=== PATIENT | female | born 1975 | race Two or more races ===

== ENCOUNTER 2020-11-13 13:28 | Emergency (ER) | payer MEDICAID, OTHER ==
[~2020-11-13] VITALS: Ht 172.7 cm; Wt 54.4 kg
[2020-11-13 13:45] VITALS: BP 140/80
[2020-11-13] MEDS ORDERED: SODIUM CHLORIDE 0.9% 1,000 ML IV ONE (13:45)
== END 2020-11-13 15:30 | disposition left against medical advice (07) ==
LOC: EDBD 13:28 → ER 13:28
DX: T67.5XXA Heat exhaustion, unspecified, initial encounter (principal); F17.210 Nicotine dependence, cigarettes, uncomplicated; Z90.89 Acquired absence of other organs; Z90.49 Acquired absence of other specified parts of digestive tract; X58.XXXA Exposure to other specified factors, initial encounter; Y93.89 Activity, other specified; Y92.89 Other specified places as the place of occurrence of the external cause; Y99.8 Other external cause status

== ENCOUNTER 2020-11-18 20:23 | Emergency (ER) | payer MEDICAID ==
[~2020-11-18] VITALS: Ht 167.6 cm; Wt 59.0 kg
[2020-11-18 20:24] VITALS: BP 125/82
[2020-11-18] MEDS ORDERED: SODIUM CHLORIDE 0.9% 1,000 ML IVB ONE (20:30)
== END 2020-11-18 21:13 | disposition left against medical advice (07) ==
LOC: EDBD 20:23 → ER 20:27
DX: R53.1 Weakness (principal); Z53.21 Procedure and treatment not carried out due to patient leaving prior to being seen by health care provider

== ENCOUNTER 2022-05-02 17:09 | Emergency (ER) | payer MEDICAID ==
[~2022-05-02] VITALS: Ht 157.5 cm; Wt 63.0 kg
[2022-05-02 18:41] VITALS: BP 117/71
[2022-05-02] MEDS ORDERED: ALPRAZolam 0.5 MG TAB PO ONE (20:00)
[2022-05-02] MEDS ORDERED: AMOX-277 PO ×2 (20:02)
[2022-05-02] MEDS ORDERED: DOXY-332 PO (20:18)
[2022-05-04] MEDS ORDERED: PROM1SOL4 PO (07:20)
[2022-05-04] MEDS ORDERED: NAPR500T31 PO (07:20)
[2022-05-04] MEDS ORDERED: FLUO40CA PO (07:20)
== END 2022-05-02 20:26 | disposition home or self-care (01) ==
LOC: ER 17:09
DX: F41.9 Anxiety disorder, unspecified (principal); F32.9 Major depressive disorder, single episode, unspecified; F42.9 Obsessive-compulsive disorder, unspecified; J06.9 Acute upper respiratory infection, unspecified; F17.210 Nicotine dependence, cigarettes, uncomplicated; Z76.0 Encounter for issue of repeat prescription; Z90.49 Acquired absence of other specified parts of digestive tract; Z59.00 Homelessness unspecified

== ENCOUNTER 2022-06-24 08:47 | Emergency (ER) | payer MEDICAID ==
[~2022-06-24] VITALS: Ht 157.5 cm; Wt 55.0 kg
[~2022-06-24 08:47] MED LIST: DOXY-332 PO; FLUO40CA PO; NAPR500T31 PO; PROM1SOL4 PO
[2022-06-24 09:03] VITALS: BP 151/95
== END 2022-06-24 10:07 | disposition left against medical advice (07) ==
LOC: EDBD 08:47 → ER 08:47
DX: M79.672 Pain in left foot (principal); M79.671 Pain in right foot; Z76.0 Encounter for issue of repeat prescription; Z53.21 Procedure and treatment not carried out due to patient leaving prior to being seen by health care provider